=== PATIENT | female | born 1960 | race Hispanic/Latino ===

== ENCOUNTER → 2020-12-11 | Day surgery (SDC) | payer OTHER ==
[~2020-12-11] MED LIST: AMBIEN10 MG PO; FAMOTIDINE20 MG PO; HYOSCYAMINE SULFATE 0.5 MG/ML INJ ONE; LIDOCAINE HCL 2% LOCAL INJ 5 ML SDV VIAL INJ ONE; LOSARTAN POTASS25 MG PO; METOPROLOL SUCC25 MG PO; PROPOFOL IV EMULSION 10 MG/ML 20 ML VIAL ONE; SYNTHROID100 MCG PO
[2020-12-11 14:37] VITALS: BP 112/82
== END | disposition home or self-care (01) ==
LOC: OR 11:06
PROVIDERS: ATTEND Internal Medicine Gastroenterology
DX: Z12.11 Encounter for screening for malignant neoplasm of colon (principal); D12.3 Benign neoplasm of transverse colon; D12.5 Benign neoplasm of sigmoid colon; K29.60 Other gastritis without bleeding; K29.50 Unspecified chronic gastritis without bleeding; K21.9 Gastro-esophageal reflux disease without esophagitis; K20.90 Esophagitis, unspecified without bleeding; R19.5 Other fecal abnormalities; K64.8 Other hemorrhoids; I10 Essential (primary) hypertension; E03.9 Hypothyroidism, unspecified; G47.00 Insomnia, unspecified; Z88.0 Allergy status to penicillin; Z01.810 Encounter for preprocedural cardiovascular examination; Z01.812 Encounter for preprocedural laboratory examination; Z20.822 Contact with and (suspected) exposure to COVID-19; Z68.33 Body mass index [BMI] 33.0-33.9, adult
CPT/HCPCS: 43239; 45384; 45385; 93005; J1980; J2001; J2704; U0002; 45378